=== PATIENT | female | born 1945 | race Caucasian/White ===

== ENCOUNTER → 2023-10-11 15:10 | Outpatient (REF) | payer OTHER, SELFPAY ==
[2023-10-11 16:46] LABS: HDL Cholesterol 60 mg/dl; LDL Cholesterol, Calculated 60 mg/dl; Total Cholesterol 135 mg/dl (50-199); Triglyceride 76 mg/dl (10-149); Very Low Density Lipoprotein 15 mg/dl (0-30)
== END ==
LOC: RAD 15:10
PROVIDERS: ATTENDING PHYSICIAN Anesthesiology; FAMILY PHYSICIAN Internal Medicine
DX: E78.5 Hyperlipidemia, unspecified (principal); Z79.899 Other long term (current) drug therapy; M17.11 Unilateral primary osteoarthritis, right knee; M19.031 Primary osteoarthritis, right wrist
CPT/HCPCS: 36415; 73110; 73560; 80061

== ENCOUNTER → 2023-10-18 11:39 | Outpatient (REF) | payer OTHER, SELFPAY | LOC: PAVMRI 11:39 | PROVIDERS: ATTENDING PHYSICIAN Anesthesiology; FAMILY PHYSICIAN Internal Medicine | DX: M17.11 Unilateral primary osteoarthritis, right knee (principal) | CPT/HCPCS: 73721 ==

== ENCOUNTER → 2023-12-27 16:43 | Outpatient (REF) | payer OTHER, SELFPAY ==
[2023-12-27 18:31] LABS: ALT (SGPT) 12 U/L (0-35); AST (SGOT) 19 U/L (14-36); Albumin 4.1 g/dl (3.5-5.0); Alkaline Phosphatase 74 U/L (38-126); Blood Urea Nitrogen 14 mg/dl (7-17); Calcium 9.3 mg/dl (8.4-10.2); Carbon Dioxide 29 mmol/L (22-30); Chloride 103 mmol/L (98-107); Glucose 86 mg/dl (70-99); Potassium 4.8 mmol/L (3.5-5.1); Sodium 138 mmol/L (135-145); Total Bilirubin 0.4 mg/dl (0.2-1.3); Total Protein 6.4 g/dl (6.3-8.2); eGFR > 60.00
== END ==
LOC: REG 16:43
PROVIDERS: ATTENDING PHYSICIAN Internal Medicine
DX: E67.2 Megavitamin-B6 syndrome (principal); Z79.899 Other long term (current) drug therapy; E78.5 Hyperlipidemia, unspecified
CPT/HCPCS: 36415; 80053

== ENCOUNTER → 2024-01-03 06:24 | Outpatient (REF) | payer OTHER, SELFPAY | LOC: REG 06:24 | PROVIDERS: ATTENDING PHYSICIAN Internal Medicine | DX: E67.2 Megavitamin-B6 syndrome (principal) | CPT/HCPCS: 36415; 84207 ==

== ENCOUNTER 2024-06-13 14:07 | Inpatient (IN) | payer OTHER, MEDICARE, SELFPAY ==
[2024-06-13] VITALS (28 sets, daily range): BP systolic 107–174; BP diastolic 39–89
[2024-06-13] MEDS: ZOFRAN ODT (ORALLY DISINTEGRATING) 4 MG PO (03:48)
[2024-06-13 03:50] LABS: % Basophils 0.7 % (0-2); % Eosinophils 0.3 % (0-6); % Immature Granulocytes 0.6 % (0-0.5); % Lymphocytes 5.9 % (20.5-51.1); % Monocytes 2.7 % (1.7-9.3); % Neutrophils 89.8 % (42.2-75.2); Absolute Basophils 0.2 10^3/uL (0-0.2); Absolute Eosinophils 0.1 10^3/uL (0-0.7); Absolute Immature Granulocytes 0.1 10^3/uL (0-0.05); Absolute Lymphocytes 1.2 10^3/uL (1.2-3.4); Absolute Monocytes 0.6 10^3/uL (0.1-0.6); Absolute Neutrophils 18.7 10^3/uL (1.4-6.5); Hematocrit 49.4 % (37.0-47.0); Hemoglobin 16.1 g/dL (12.0-16.0); Mean Corp Hgb Conc. 32.6 g/dL (33.0-37.0); Mean Platelet Volume 9.6 fL (7.4-10.4); Nucleated Red Blood Cells % 0 %; Platelet Count 339 10^3/uL (130-400); Red Blood Cell Count 5.37 10^6/uL (4.20-5.40); Red Cell Dist. Width 12.6 % (11.5-14.5); White Blood Cell Count 20.8 10^3/uL (4.8-10.8)
[2024-06-13 04:04] LABS: ALT (SGPT) 25 U/L (0-35); AST (SGOT) 29 U/L (14-36); Albumin 5.2 g/dl (3.5-5.0); Alkaline Phosphatase 78 U/L (38-126); Blood Urea Nitrogen 22 mg/dl (7-17); Calcium 10.1 mg/dl (8.4-10.2); Carbon Dioxide 29 mmol/L (22-30); Chloride 101 mmol/L (98-107); Glucose 188 mg/dl (70-99); Lipase 113 U/L (23-300); Potassium 3.9 mmol/L (3.5-5.1); Sodium 140 mmol/L (135-145); Total Bilirubin 0.3 mg/dl (0.2-1.3); eGFR > 60.00
[2024-06-13] MEDS: ZOFRAN 4 MG IV (05:31)
[2024-06-13] MEDS: NSS 1000 IV (05:32)
[2024-06-13] MEDS: DILAUDID 0.5 MG IV (06:54)
--- NOTE | 2024-06-13 09:21 | ED.GENMED ---
History of Present Illness
General
Chief Complaint: Abdominal Pain
Source: patient and spouse
Exam Limitations: none
Time Seen by Provider: 06/13/24 06:18
History of Present Illness
History of Present Illness:
79-year-old female presents abdominal pain, vomiting and back pain. Also reports she has some loose stool. Patient states her symptoms started last night and persisted. On my evaluation her back pain and her abdominal pain persists. Nausea is a
little bit improved but does persist. No fevers. No obvious sick contacts. Has a history of hysterectomy.
Past History
Past History
ED Past Medical History: Cancer (Uterine with hysterectomy 2003), GERD and HTN
ED Past Surgical History: Gynecological and Orthopedic
Phy Exam
Physical Exam
Physical Exam:
CONSTITUTIONAL Patient alert and oriented to person, place and time. Well-appearing. Vital signs reviewed.
HEAD atraumatic, normocephalic.
EYES eyelids normal to inspection, Extraocular muscles intact, Conjunctiva normal, Sclera normal.
NECK normal range of motion, Trachea midline, no jugular venous distention.
RESPIRATORY CHEST No respiratory distress noted, Chest expansion equal, Bilateral breath sounds clear.
CARDIOVASCULAR regular rate and rhythm, Heart sounds normal.
ABDOMEN distended, hypoactive bowel sounds. Moderate diffuse tenderness.
BACK normal inspection, no obvious deformities
UPPER EXTREMITY range of motion normal, Motor strength normal, no cyanosis, no edema.
LOWER EXTREMITY range of motion normal, Motor strength normal, no cyanosis, no edema.
NEURO Speech normal, No focal motor deficits, Petty coma scale 15, Memory normal, Cranial Nerves intact to screening exam.
SKIN skin warm, dry, and normal in color.
Course
Orders/Labs/Results
Orders:
Orders
06/13/24 03:43
Complete Blood Count/With Diff Urgent
Comprehensive Metabolic Panel Urgent
Lipase Urgent
06/13/24 03:45
Ondansetron Orally Disint [Zofran Odt (Orally Disintegrating)] 4 mg .ROUTE .STK-MED ONE
06/13/24 03:47
ECG [Electrocardiogram (*1)] Urgent
Reason for Study: Abdominal Pain
Cardiology Consult: Unknown
EKG- Treatment ONCE
Ondansetron Orally Disint [Zofran Odt (Orally Disintegrating)] 4 mg PO NOW STA
06/13/24 05:29
Ondansetron Injectable [Zofran] 4 mg .ROUTE .STK-MED ONE
06/13/24 05:30
Ondansetron Injectable [Zofran] 4 mg IV NOW STA
06/13/24 05:32
0.9% Sodium Chloride 1000 ml [Nss] 1,000 ml IV BOLUS
06/13/24 06:30
CT Abd/pelvis W Iv Cont Urgent
Comment:
Reason For Exam: mid abd pain, back pain, vomiting
HYDROmorphone [Dilaudid] 0.5 mg IV NOW STA
Ondansetron Injectable [Zofran] 4 mg IV NOW STA
06/13/24 09:39
Lactic Acid Urgent
06/13/24 09:52
Pantoprazole [Protonix IV] 40 mg .ROUTE .STK-MED ONE
06/13/24 09:59
Pantoprazole [Protonix IV] 40 mg IV NOW STA
06/13/24 10:14
NG Tube [GI tube insertion- Treatment] ONCE
06/13/24 10:46
Fentanyl Citrate/Pf [Sublimaze] 25 mcg IV PACU-Q5MPRN PRN
Fentanyl Citrate/Pf [Sublimaze] 50 mcg IV PACU-Q5MPRN PRN
Ondansetron Injectable [Zofran] 4 mg IV PACU-ONCEPRN PRN
Prochlorperazine [Compazine] 5 mg IV PACU-ONCEPRN PRN
06/13/24 10:47
Notify MD As Directed
Notify physician if: for SDS patients with known or suspected sleep obstructive sleep apnea, monitor in the
PACU.
Notify MD for any apneic/desaturation episodes
O2 Therapy [RESP] Urgent
Titrate/Wean O2 to maintain O2 sat greater than (%): 92
Special Instructions: -Provide supplemental oxygen to achieve O2 sat of 92% or greater.
-After 15 min, may wean O2 and discontinue if patient is able to maintain O2 sat of 92%
or greater during recovery period.
If patient is a discharge home, without oxygen therapy, notify anestheiologist if
unable to maintain O2 SAT of 92% or greater on room air for MD clearance.
06/13/24 10:54
Admit/Transfer Patient As Directed
Co-Sign Provider:
Level of Care: Inpatient admission
Assign to:: Medical/Surgical
Physician / Group: Vahid
Diagnosis: SBO
Reason for Hospitalization: SBO
Expected length of stay greater than two midnights?: Yes
ELOS- Estimated Length of Stay in days: 6
I certify the patient meets the requirements for IP care: Yes
PRN Pain Medication Management As Directed
May give lesser potent ordered pain med per pt: Yes
preference::
Protocol:: Medication orders for pain may be administered in a
manner that supports deferring to patient preference
when the pt is:
- Requesting an ordered lesser potent pain medication.
Least to most potent pain medications are defined
as: acetaminophen < NSAID < tramadol < opioids
(morphine, oxycodone, hydromorphone).
- Requesting a lesser dose of the same medication IF
ORDERED.
- Requesting a less intrusive route of administration
if both routes are prescribed by the provider (PO <
IV).
06/13/24 10:55
Lidocaine HCl/Pf [Xylocaine-Mpf 1% Vial] 50 mg .ROUTE .STK-MED ONE
Propofol [Diprivan] 20 ml .ROUTE .STK-MED
Rocuronium [place] [Rocuronium] 50 mg .ROUTE .STK-MED ONE
06/13/24 10:56
Code Status As Directed
Resuscitation Status: Full Code
06/13/24 10:59
CeFAZolin 2 GRAM [Ancef] 2 grams in 10 ml IV PRE PROCEDURE
NG Tube [Gastrointestinal Tubes] As Directed
To suction?: Yes
Type of suction: Low intermittent
06/13/24 11:00
Normosol (Mult Electrolytes) [Normosol-R/Plasmalyte-A] 1,000 ml IV PER PROTOCOL
06/13/24 11:12
Bupivacaine 0.5%Pf/Epinephrin [Sensorcain-Mpf Epi 0.5%-0.0005] 30 ml .ROUTE .STK-MED ONE
06/13/24 11:21
Propofol [Diprivan] 20 ml .ROUTE .STK-MED
Propofol [Diprivan] 20 ml .ROUTE .STK-MED
06/13/24 11:33
Rocuronium [place] [Rocuronium] 50 mg .ROUTE .STK-MED ONE
06/13/24 11:44
Dexamethasone Sod Phosphate [Decadron] 20 mg .ROUTE .STK-MED ONE
Ondansetron Injectable [Zofran] 4 mg .ROUTE .STK-MED ONE
06/13/24 11:45
Famotidine [Pepcid] 20 mg .ROUTE .STK-MED ONE
06/13/24 12:00
CeFAZolin 2 GRAM [Ancef] 2 grams in 10 ml IV Q8H
06/13/24 12:08
Phenylephrine HCl/0.9% NaCl [Yosef-Synephrine] 1,000 mcg .ROUTE .STK-MED ONE
06/13/24 12:20
Sugammadex Sodium [Bridion] 400 mg .ROUTE .STK-MED ONE
06/13/24 12:27
OR Cytology Routine
Date Specimen was Collected: 06/13/24
Time Specimen was Collected: 12:28
Source: Peritoneal Fluid
Clinical Impression: HX OF ENDOMETRIAL CA
History of Malignancy: ENDOMETRIAL CA
Submitting Physician: ESTER
06/13/24 12:35
Fluid Culture with Gram Stain Routine
LYNN Source: Peritoneal Fluid
Specimen Description:
Date Specimen was Collected: 06/13/24
Time Specimen was Collected: 12:27
06/13/24 13:10
Acetaminophen 1000MG/100Ml [Ofirmev] 1,000 mg in 100 ml .ROUTE .STK-MED
06/13/24 13:13
Rocuronium [place] [Rocuronium] 50 mg .ROUTE .STK-MED ONE
06/13/24 14:03
Bisacodyl [Dulcolax] 10 mg RECTAL [id number] PRN
Dextrose 5%/Lactringers 1000ML [D5lr] 1,000 ml IV 125 mls/hr
Docusate W/Senna [Senokot-S] 1 tablet PO BIDPRN PRN
Pantoprazole [Protonix IV] 40 mg IV DAILY
Polyethylene Glycol Powder [Miralax] 17 grams PO DAILYPRN PRN
06/13/24 14:03
Activity As Directed
Activity Level: Out of Bed-Early Mobility
Pneumatic Compression Sleeves As Directed
Type: Knee high
Vital Signs As Directed
Frequency: Per unit guidelines
DX Deep Vein Thrombosis Video Routine
06/13/24 14:39
Morphine Sulfate 2 mg IV Q4HPRN PRN
06/13/24 Dinner
NPO
Allow oral meds: No
Allow clear liquids: No
06/13/24 18:00
Enoxaparin Sodium [Lovenox] 40 mg SC QPM
06/13/24 20:00
Ondansetron Injectable [Zofran] 4 mg IV Q6HPRN PRN
06/14/24 06:00
Basic Metabolic Panel IN AM
Complete Blood Count/No Diff IN AM
06/15/24 06:00
Basic Metabolic Panel IN AM
Complete Blood Count/No Diff IN AM
06/16/24 06:00
Basic Metabolic Panel IN AM
Complete Blood Count/No Diff IN AM
06/17/24 06:00
Basic Metabolic Panel IN AM
Complete Blood Count/No Diff IN AM
06/18/24 06:00
Basic Metabolic Panel IN AM
Complete Blood Count/No Diff IN AM
06/19/24 06:00
Basic Metabolic Panel IN AM
Complete Blood Count/No Diff IN AM
06/20/24 06:00
Basic Metabolic Panel IN AM
Complete Blood Count/No Diff IN AM
Abnormal Lab Results
06/13/24
03:43
WBC 20.8 H 10^3/uL
(4.8-10.8)
Hgb 16.1 H g/dL
(12.0-16.0)
Hct 49.4 H %
(37.0-47.0)
MCHC 32.6 L g/dL
(33.0-37.0)
Abs Immat Gran (auto) 0.1 H 10^3/uL
(0-0.05)
Absolute Neuts (auto) 18.7 H 10^3/uL
(1.4-6.5)
Immature Gran % 0.6 H %
(0-0.5)
Neutrophils % 89.8 H %
(42.2-75.2)
Lymphocytes % 5.9 L %
(20.5-51.1)
BUN 22 H mg/dl
(7-17)
Glucose 188 H mg/dl
(70-99)
Albumin 5.2 H g/dl
(3.5-5.0)
06/13/24 03:43
06/13/24 03:43
Vital Signs
Initial and Last Documented VS:
Initial Vital Signs
Temp Pulse Resp BP Pulse Ox
97.6 F 73 16 144/82 99
06/13/24 03:23 06/13/24 03:23 06/13/24 03:23 06/13/24 03:23 06/13/24 03:23
Last Documented Vital Signs
Temp Pulse Resp BP Pulse Ox
98.9 F 79 15 119/62 96
06/13/24 14:03 06/13/24 14:30 06/13/24 14:30 06/13/24 14:30 06/13/24 14:30
MDM/Problems Addressed
MDM/Problems Addressed:
Internal hernia, small bowel obstruction
*Radiology
Radiology exam reviewed: preliminary read by ED provider (no free air. SBO)
*Pulse Oximetry
Patient hypoxic: no
*Critical Care Note
Total Time (30-74mins, 75-104mins- exclusive of procedures): Not Applicable
Data Reviewed
Source: patient and spouse
Prescriptions/Medications Considered But Not Given:
Considered antibiotics but hold off until surgical evaluation
Patient Management
Discussion with other providers: Hospitalist and Tightener (Case discussed with general surgery)
Escalation/DeEscalation of care consider admission/obs:
Case discussed with general surgery. Admit. OR. Patient does feel little better on reevaluation.
ED Attending Note
-
Portions of this chart may have been created with voice recognition software.� Occasional wrong word or��sound alike� substitutions may have occurred due to the inherent limitations of voice recognition software.
Discharge Plan
Departure
Patient Disposition: Admit
Date of Disposition: 06/13/24
Time of Disposition: 09:22
Admit to: Med/Surg
Presentation/result/management discussed w/ accepting MD/DO: Hospitalist
Discharge Problem:
SBO (small bowel obstruction), Internal hernia
Interventions
Interventions:
*General Assessment Last Done: 06/13/24 03:23
*Neglect/Abuse Screening Last Done: 06/13/24 03:23
ED- Fall Risk Assessment Last Done: 06/13/24 04:58
*ED COVID-19 Vaccine History Last Done: 06/13/24 03:23
*Nursing Disposition Last Done: 06/13/24 11:00
RW-Hadxub-Ivmchohsuu Assessment Last Done: 06/13/24 07:52
Discharge Date and Time
Discharge Date/Time: 06/13/24 11:00
[2024-06-13 09:59] LABS: Lactic Acid 1.6 mmol/L (0.7-2.0)
[2024-06-13] MEDS: PROTONIX IV 40 MG IV ×2 (10:00→16:46)
--- NOTE | 2024-06-13 10:40 | HPS.HSE ---
Family Physician
-
Family Physician: Feli Gamboa
Chief Complaint
-
Abdominal pain and vomiting
History of Present Illness
79 y/o F with PMHx:
Osteoarthritis
Fibromyalgia
Hyperlipidemia
Obesity due to excess calories
Obstructive sleep apnea, declined CPAP in the past
GERD with h/o esophagitis
Nonalcoholic fatty liver disease
Depression
Asthma
Allergic rhinitis
Vitamin D deficiency
Rosacea
h/o endometrial carcinoma s/p KEYONA-BSO 2003
Question of Sjogren's
CAD (cath 04/18/23 without intervention)
who p/w CC abdominal pain and vomiting. Patient reports she has short-term memory loss which does affect the history. She states last night she had sudden onset vomiting and diffuse abdominal pain. She cannot characterize abdominal pain. She is
not remember any hematemesis or coffee-ground emesis. She was having bowel movements yesterday evening. She denies any other acute symptoms. In the ER patient had CT A/P showing New findings suggesting developing small bowel obstruction possibly
due to an internal hernia. Dr. De Oliveira plans to take the patient to the OR.
Medical History
Past Medical History
Past Medical History: Reports Other (Osteoarthritis Fibromyalgia Hyperlipidemia Obesity due to excess calories Obstructive sleep apnea, declined CPAP in the past GERD with h/o esophagitis Nonalcoholic fatty liver disease Depression Asthma Allergic
rhinitis Vitamin D deficiency Rosacea h/o endometrial carcinoma s/p KEYONA-BSO 2003 Question)
Past Surgical History: Reports Other
Additional Past Surgical History:
as per HPI, otherwise N/A
Social History
Tobacco: Non-smoker
Alcohol: None
Drug: None
Family History
Family History: Not pertinent
Allergies / Home Medications
Allergies reflects when Allergies were last updated in [facility].
Home Medications with original date entered in [facility]
Allergy/Medication List:
Allergies
Allergy/AdvReac Type Severity Reaction Status Date / Time
hydromorphone Allergy Nausea / Verified 04/18/23 09:56
Vomiting
morphine Allergy Nausea / Verified 04/18/23 09:56
Vomiting,
headaches
oxycodone Allergy Nausea / Verified 04/18/23 09:56
Vomiting
environmental Allergy nasal Uncoded 04/18/23 09:56
congestion
Home Medications
Beta Carotene 25,000 units PO DAILY Supplement 06/25/14
albuterol sulfate 90 mcg/actuation aerosol inhaler 2 puff inhalation R Q6HPRN PRN asthma 06/25/14
ascorbic acid (vitamin C) 1,000 mg tablet (Vitamin C) 1,000 mg PO BID Supplement 06/25/14
cholecalciferol (vitamin D3) 250 mcg (10,000 unit) capsule 10,000 unit PO DAILY Supplement 06/25/14
melatonin 10 mg tablet 10 mg PO HS Sleep 06/25/14
vitamin B complex 1 ea PO DAILY Supplement 06/25/14
omeprazole 20 mg capsule,delayed release 20 mg PO DAILY Gastrointestinal issue 12/27/20
zinc sulfate 50 mg zinc (220 mg) capsule 50 mg PO DAILY Supplement ##0 12/27/20
citalopram 20 mg tablet 20 mg PO DAILY Mental Health/Anxiety 04/20/21
Pea Supplement 1 cap PO DAILY 04/13/23
aspirin 81 mg chewable tablet 81 mg PO DAILY 04/18/23
metoprolol succinate 25 mg tablet,extended release 24 hr (Toprol XL) 12.5 mg (1/2 x 25 mg) PO DAILY #30 tabs 04/18/23
nitroglycerin 0.4 mg sublingual tablet 0.4 mg sublingual [id number] PRN chest pain #25 tabs 04/18/23
rosuvastatin 10 mg tablet 10 mg PO QPM #30 tabs 04/18/23
turmeric 100 mg-radha 150 mg-olive 50 mg-oreg 150 mg-capryl capsule 1 cap PO DAILY 04/18/23
vitamin K2 40 mcg tablet 40 mcg PO DAILY 04/18/23
Review of Systems
-
History Source: Patient
A 12 point ROS was completed and negative except as noted: Yes
Physical Exam
Vital Signs
Vital Signs
Temp Pulse Resp BP Pulse Ox
97.6 F 79 15 147/68 90
06/13/24 03:23 06/13/24 08:13 06/13/24 08:13 06/13/24 09:00 06/13/24 09:00
Physical Exam
General: Other (.)
Laboratory Results
-
06/13/24 03:43
06/13/24 03:43
Laboratory Results
Lactic Acid 1.6 mmol/L (0.7-2.0) 06/13/24 09:39
Total Bilirubin 0.3 mg/dl (0.2-1.3) 06/13/24 03:43
AST 29 U/L (14-36) 06/13/24 03:43
ALT 25 U/L (0-35) 06/13/24 03:43
Alkaline Phosphatase 78 U/L (38-126) 06/13/24 03:43
Lipase 113 U/L (23-300) 06/13/24 03:43
Impression/Plan
-
Gen: NAD, AAOx3.
Eyes: EOMI, PERRLA, no scleral icterus.
Neck: supple.
CV: RRR, +S1/S2, no m/r/g.
Resp: CTAB, no rales, wheezes, or rhonchi.
Abd: +BS, soft, NT, mild-mod distention
Skin: No rashes.
Neuro: CN 2-12 intact, non-focal.
Psych: Normal mood and affect.
CT A/P: New findings suggesting developing small bowel obstruction possibly due to an internal hernia. Associated moderate ascites. New.
Acute SBO:
-NGT placed in ER
-surgery following, for OR today
-IVFs/NPO/pain control
Other problems (all home meds on hold for now while NPO):
Osteoarthritis
Fibromyalgia
Hyperlipidemia
Obesity due to excess calories
Obstructive sleep apnea, declined CPAP in the past
GERD with h/o esophagitis: IV PPI
Nonalcoholic fatty liver disease
Depression
Asthma
Allergic rhinitis
Vitamin D deficiency
Rosacea
h/o endometrial carcinoma s/p KEYONA-BSO 2003
Question of Sjogren's
CAD (cath 04/18/23 without intervention)
FULL/Lovenox
--- NOTE | 2024-06-13 11:13 | CON.GS ---
Consultation
-
Date/Time Consultation Requested: 06/13/2024 10 AM
Date/Time Consultation Performed: 06/13/2024 10 AM
Requesting Provider: ED
Performing Provider: Dr. De Oliveira
Reason for Consultation: Internal hernia
Medical History
-
Chief Complaint: Abdominal pain
History of Present Illness:
This is a 79-year-old female with multiple medical comorbidities, including history of endometrial cancer status post total abdominal hysterectomy BSO in 2003 who presents with abdominal pain nausea vomiting found to have internal hernia on CT
imaging as well as a fair amount of free fluid. She states though her pain has improved but she still has some nausea. She did vomit nonbloody nonbilious emesis earlier today she states that it was just food.
Past Medical History
Past Medical History: Reviewed & Noncontributory
Past Surgical History: Gynecological
Social History
Tobacco: Non-Smoker
Alcohol: None
Drug: None
Personal:
Living: With Family
Family History
Family History: Reviewed & Not Pertinent
Allergies / Home Medications
Allergy/AdvReac Type Severity Reaction Status Date / Time
hydromorphone Allergy Nausea / Verified 04/18/23 09:56
Vomiting
morphine Allergy Nausea / Verified 04/18/23 09:56
Vomiting,
headaches
oxycodone Allergy Nausea / Verified 04/18/23 09:56
Vomiting
environmental Allergy nasal Uncoded 04/18/23 09:56
congestion
�Medication �Instructions �Recorded �Confirmed �Type
Beta Carotene 25,000 units PO DAILY Supplement 06/25/14 06/13/24 History
albuterol sulfate 90 mcg/actuation 2 puff inhalation R Q6HPRN PRN 06/25/14 06/13/24 History
aerosol inhaler asthma
ascorbic acid (vitamin C) 1,000 mg 1,000 mg PO BID Supplement 06/25/14 06/13/24 History
tablet (Vitamin C)
cholecalciferol (vitamin D3) 250 10,000 unit PO DAILY Supplement 06/25/14 06/13/24 History
mcg (10,000 unit) capsule
melatonin 10 mg tablet 10 mg PO HS Sleep 06/25/14 06/13/24 History
vitamin B complex 1 ea PO DAILY Supplement 06/25/14 06/13/24 History
omeprazole 20 mg capsule,delayed 20 mg PO DAILY Gastrointestinal 12/27/20 06/13/24 History
release issue
zinc sulfate 50 mg zinc (220 mg) 50 mg PO DAILY Supplement ##0 12/27/20 06/13/24 History
capsule
citalopram 20 mg tablet 20 mg PO DAILY Mental 04/20/21 06/13/24 History
Health/Anxiety
Pea Supplement 1 cap PO DAILY 04/13/23 06/13/24 History
aspirin 81 mg chewable tablet 81 mg PO DAILY 04/18/23 06/13/24 History
metoprolol succinate 25 mg 12.5 mg (1/2 x 25 mg) PO DAILY #30 04/18/23 06/13/24 Rx
tablet,extended release 24 hr tabs
(Toprol XL)
nitroglycerin 0.4 mg sublingual 0.4 mg sublingual [id number] PRN 04/18/23 06/13/24 Rx
tablet chest pain #25 tabs
rosuvastatin 10 mg tablet 10 mg PO QPM #30 tabs 04/18/23 06/13/24 Rx
turmeric 100 mg-radha 150 1 cap PO DAILY 04/18/23 06/13/24 History
mg-olive 50 mg-oreg 150 mg-capryl
capsule
vitamin K2 40 mcg tablet 40 mcg PO DAILY 04/18/23 06/13/24 History
Review of Systems
-
All other systems: Negative unless noted
A 10 point review of systems was completed, and was negative except as per HPI.
Physical Exam
Vital Signs
Temp Pulse Resp BP Pulse Ox
97.6 F 92 18 128/88 93
06/13/24 03:23 06/13/24 10:30 06/13/24 10:30 06/13/24 10:30 06/13/24 10:30
06/12/24 06/13/24 06/14/24
06:59 06:59 06:59
Actual Weight 94 kg
Lab Results
06/13/24 03:43
06/13/24 03:43
WBC 20.8 10^3/uL (4.8-10.8) H 06/13/24 03:43
Hgb 16.1 g/dL (12.0-16.0) H 06/13/24 03:43
Hct 49.4 % (37.0-47.0) H 06/13/24 03:43
Plt Count 339 10^3/uL (130-400) 06/13/24 03:43
Abs Immat Gran (auto) 0.1 10^3/uL (0-0.05) H 06/13/24 03:43
Neutrophils % 89.8 % (42.2-75.2) H 06/13/24 03:43
Physical Exam
General: Well Developed
HEENT: Normocephalic
Respiratory: Non Labored Respirations
GI: Soft, Tender ( Mild), Distended and Obese
Data Reviewed
-
CT Scan: Image Personally Visualized and interpreted, Report Reviewed by me, Discussed with Physician, Discussed with Patient and Discussed with Family
Labs: Labs Reviewed by me, Discussed with Physician and Discussed with Patient
Total Time Spent with Patient (in minutes): 40
Assessment / Plan
-
This is a 79-year-old female with a history of endometrial cancer status post total abdominal hysterectomy/BSO in 2003 who presents with abdominal pain nausea vomiting found to have small bowel obstruction likely secondary to a internal hernia with
notable bowel wall thickening, inflammation and free fluid. In addition her leukocytosis is 20K. Though her lactate is normal and her abdominal exam is fairly reassuring I am concerned for bowel threat given her imaging findings and discussed that
taking this patient to the OR for diagnostic laparoscopy.
Will plan for DL in the OR today.
N.p.o., IV fluids, IV antibiotics ordered on-call.
Please place an NG tube preoperatively to decrease the risk of aspiration on induction.
Risks/Benefits/Alternatives, expected postoperative course and possible complications (bleeding, infection, injury to surrounding structures, acute/chronic pain) discussed at length. Patient wishes to proceed with surgery. All questions answered.
Consent obtained.
I spent 60 minutes in total for the care of this patient today including direct patient care and counseling, reviewing labs, imaging, coordination of care, as well as documentation.
--- NOTE | 2024-06-13 11:17 | W.SUR.PREOP ---
Pre-Operative Surgical Note
-
I have examined this patient prior to the performance of the scheduled procedure.
The patient's condition is unchanged from the time of the current History and
Physical and the patient is able to undergo the scheduled procedure.
--- NOTE | 2024-06-13 13:50 | W.IMMPOSTOP ---
Surgical Immed Post Op Note
-
Primary Surgeon: Trenton De Oliveira MD
Assisting Surgeon: None
Senior Ux Developer: BEENA Alford
Pre-op Diagnosis: Small bowel obstruction, volvulus
Post-op Diagnosis: Closed-loop small bowel obstruction, volvulus, murky ascites ascites
Procedure Performed:
1. Diagnostic laparoscopy converted to exploratory laparotomy
2. Lysis of adhesions
3. Paracentesis (400 cc)
Anesthesia Type: General
Specimen / Cultures:
1. Ascites fluid for culture and cytology.
Estimated Blood Loss: 29 cc
Complications: None
Operative Findings: Began with a 4 port diagnostic laparoscopy, lower midline incisions taken down fairly easily. Ligament of Treves identified and run in a retrograde manner where we identified multiple loops of small bowel that were adherent to
each and twisted around its axis causing a volvulus/closed-loop bowel obstruction. Converted to a mini exploratory laparotomy to perform a lysis of adhesions. The bowel was returned to the abdomen in its proper orientation. A few serosal and
mesenteric tears noted, all oversewn. All were inherent to the nature of the dissection and unavoidable and of no consequence.
POST OP PLAN:
Imaging: None
Labs: Routine AM
Diet: N.p.o., continue NG tube to low intermittent wall suction
Analgesia: Tylenol scheduled, Dilaudid as needed
Neuro/vascular checks: q4h
AC/AP: Hold Therapeutic AC, Ok for DVT PPx
Activity: Ad Izabella
Wound/Incisions/Drains: Routine
Abx: None
Dispo: RNF, await return of bowel function.
[2024-06-13] MEDS: TORADOL 15 MG IV (16:18)
[2024-06-13] MEDS: D5LR 1000 IV (16:44)
[2024-06-13] MEDS: NSS (PRESERVATIVE FREE) 10 ML IV (16:47)
[2024-06-13] MEDS: LOVENOX 40 MG SC (17:23)
[2024-06-14] MEDS: D5LR 1000 IV ×3 (02:13→21:46)
[2024-06-14 03:14] VITALS: BP 123/74
[2024-06-14 06:00] VITALS: BMI 36.8
[2024-06-14 06:33] LABS: Blood Urea Nitrogen 20 mg/dl (7-17); Calcium 8.7 mg/dl (8.4-10.2); Carbon Dioxide 32 mmol/L (22-30); Chloride 103 mmol/L (98-107); Estimated Creatinine Clearance 76 ml/min; Glucose 128 mg/dl (70-99); Sodium 141 mmol/L (135-145); eGFR > 60.00
[2024-06-14 06:42] LABS: Hematocrit 36.8 % (37.0-47.0); Mean Corp Hgb Conc. 32.6 g/dL (33.0-37.0); Mean Corpuscular Hgb 30.5 pg (27.0-31.0); Mean Corpuscular Volume 93.6 fL (81.0-99.0); Mean Platelet Volume 9.9 fL (7.4-10.4); Platelet Count 267 10^3/uL (130-400); Red Blood Cell Count 3.93 10^6/uL (4.20-5.40); Red Cell Dist. Width 12.9 % (11.5-14.5)
[2024-06-14 07:12] VITALS: BP 127/57
--- NOTE | 2024-06-14 08:22 | W.PN.HOSP.TC ---
Today's Communication/Plan
-
see plan
Assessment / Plan
Assessment / Plan
Gen: NAD, Awake and alert
Eyes: EOMI, PERRLA, no scleral icterus.
Neck: supple.
CV: remains RRR, +S1/S2, no m/r/g.
Resp: CTAB, no rales, wheezes, or rhonchi.
Abd: absent BS, soft, NT to light palpation, mild distention
Skin: No rashes.
Neuro: CN 2-12 intact, non-focal.
Psych: Normal mood and affect.
CT A/P: New findings suggesting developing small bowel obstruction possibly due to an internal hernia. Associated moderate ascites. New.
Acute SBO:
-NGT placed in ER
-s/p Diagnostic laparoscopy converted to exploratory laparotomy, Lysis of adhesions, Paracentesis (400 cc) on 06/13/24
-IVFs/NPO/pain control
Other problems (all home meds on hold for now while NPO):
Osteoarthritis
Fibromyalgia
Hyperlipidemia
Obesity due to excess calories
Obstructive sleep apnea, declined CPAP in the past
GERD with h/o esophagitis: IV PPI
Nonalcoholic fatty liver disease
Depression
Asthma
Allergic rhinitis
Vitamin D deficiency
Rosacea
h/o endometrial carcinoma s/p KEYONA-BSO 2003
Question of Sjogren's
CAD (cath 04/18/23 without intervention)
FULL/Lovenox
Anticipated Discharge: > 48 hours
Subjective/Interval History
-
Date of Service: June 14, 2024
Reports abdominal discomfort. No flatus yet.
Objective Data
-
Labs:
Laboratory Results
06/14/24
05:42
WBC 13.0 H
Hgb 12.0 D
Hct 36.8 L
Plt Count 267 D
Sodium 141
Potassium 4.0
Chloride 103
Carbon Dioxide 32 H
BUN 20 H
Creatinine 0.7
Glucose 128 H
Calcium 8.7
Vital Signs:
Vital Signs
Temp Pulse Resp BP Pulse Ox
98.4 F 86 18 127/57 95
06/14/24 07:12 06/14/24 07:12 06/14/24 07:12 06/14/24 07:12 06/14/24 07:12
I&O
06/13/24 06/14/24 06/15/24
06:59 06:59 06:59
Intake Total 1950 / 1949
Output Total 1060 / 1060
Balance 890 / 890
[2024-06-14] MEDS: NSS (PRESERVATIVE FREE) 10 ML IV (08:58)
[2024-06-14] MEDS: PROTONIX IV 40 MG IV (08:59)
[2024-06-14] MEDS: TORADOL 15 MG IV ×2 (08:59→15:31)
--- NOTE | 2024-06-14 10:05 | W.PN.GS2 ---
Today's Communication / Plan
-
Out of bed and ambulate
Assessment / Plan
-
This is a 79-year-old female postoperative day 1 from a diagnostic lap converted to open lysis of adhesions for a closed-loop obstruction/small bowel volvulus and drainage of significant amount of murky appearing ascites. Doing well, expected
postoperative course.
N.p.o., IV fluids, continue NG tube to low intermittent wall suction. Okay to clamp for p.o. meds and for ambulation.
Out of bed and ambulate as much as possible today.
Follow-up cultures. Will do a 4-day course of Ancef.
General surgery will continue to follow
Time Spent
Total Time Spent with Patient (in minutes): 20
Subjective Data
-
Date of Service: June 14, 2024
Interval Events:
No acute events overnight. Slept well. Pain Controlled. Denies Nausea/Vomiting, -bowel function.
Objective Data
-
Intake and Output
06/13/24 06/14/24 06/15/24
06:59 06:59 06:59
Intake Total 1949
Output Total 1060 / 1060
Balance 890 / 890
Intake:
IV fluids (Total) 1949
Normosol 200 / 200
Amount instilled into GI Tube ( 0 / 0
Total)
[place] Sump 0 / 0
Output:
Gastrointestinal tube output ( 400 / 400
Total)
[place] Sump 400 / 400
Urine, Luo 660 / 660
Vital Signs
Temp Pulse Resp BP Pulse Ox
98.4 F 86 18 127/57 95
06/14/24 07:12 06/14/24 07:12 06/14/24 07:12 06/14/24 07:12 06/14/24 07:12
Lab Results
06/14/24 05:42
06/14/24 05:42
Calcium 8.7 mg/dl (8.4-10.2) 06/14/24 05:42
Total Bilirubin 0.3 mg/dl (0.2-1.3) 06/13/24 03:43
AST 29 U/L (14-36) 06/13/24 03:43
ALT 25 U/L (0-35) 06/13/24 03:43
Alkaline Phosphatase 78 U/L (38-126) 06/13/24 03:43
Total Protein 8.0 g/dl (6.3-8.2) 06/13/24 03:43
Albumin 5.2 g/dl (3.5-5.0) H 06/13/24 03:43
Physical Exam
-
GENERAL/NEURO: Awake, Alert, no distress
CHEST: Unlabored breathing on RA
ABDOMEN: Soft, appropriately tender, distended, incision no dressing in place with some strikethrough, stable.
--- NOTE | 2024-06-14 10:09 | OR.RPT ---
Operative Report
Operative Report
Patient Name: Julissa Johnson
: 1945
Date of Operation: 06/13/2024
Preoperative Diagnosis: SBO, volvulus
Postoperative Diagnosis: Closed-loop small bowel obstruction, volvulus, ascites
Procedure(s):
1. Diagnostic laparoscopy converted to exploratory laparotomy
2. Lysis of adhesions
3. Paracentesis (400 cc)
Surgeon(s):
Dr. De Oliveira
Oliving Machine Operator(s):
BEENA Alford
Anesthesia: General
Estimated Blood Loss: 29 cc
Urine Output: None
Drains/Lines/Implants: None
Specimens:
1. Ascites fluid for culture and cytology
HPI/Surgical Indications:
This is a 79year old female who presented to our hospital with rather abrupt onset abdominal pain, found to have small bowel volvulus in the setting of a history of uterine cancer status post remote total abdominal hysterectomy as well as prior
abdominoplasty. Risks/Benefits/Alternatives were discussed at length, and the patient agreed to proceed with surgery.
Operative Findings: Began with a 4 port diagnostic laparoscopy, lower midline incisions taken down fairly easily. Ligament of Treves identified and run in a retrograde manner where we identified multiple loops of small bowel that were adherent to
each and twisted around its axis causing a volvulus/closed-loop bowel obstruction. Converted to a mini exploratory laparotomy to perform a lysis of adhesions. The bowel was returned to the abdomen in its proper orientation. A few serosal and
mesenteric tears noted, all oversewn. All were inherent to the nature of the dissection and unavoidable and of no consequence.
Procedure Description:
The patient was brought to the Operating Room and placed in the supine position with the arms tucked. IV antibiotics were infused and Venodyne stockings placed. Following uneventful induction of general endotracheal anesthesia, the abdomen was
prepped and draped in the usual sterile fashion. The abdomen was entered using a left subcostal Veress technique that required a single pass followed by a left upper quadrant 5 mm Optiview trocar. There were some omental adhesions noted to the
anterior abdominal wall primarily along the inferior midline at the site of her prior incision so 3 additional 5 mm ports were then placed in the respective quadrants and these adhesions were carefully taken down. We did encounter both dilated and
decompressed loops of bowel. The right colon was identified and traced to the ligament of Treves. The bowel was then run in a retrograde fashion however it was noted to be diving down into the pelvis and despite repositioning of the patient and
manipulation of the bowel we could not free up fairly large segment of bowel due to dense adhesions. At this point, I felt a laparoscopic lysis would take a significant amount of time so we elected to convert to a open lysis via a lower midline
incision. The abdomen was entered safely and a large Ajit wound retractor was placed. The bowel was carefully extracorporealized. There was several loops of small bowel that were adherent to each other and had twisted around its axis causing a
volvulus and closed-loop bowel obstruction. We then performed a full lysis. There were 2 small serosal tears that were imbricated with 3-0 Vicryl sutures. There is also a small injury to the mesentery that was ligated with a 3-0 silk pop. these
were inherent to the nature of the dissection and of no consequence. Eventually the bowel and mesentery was free. The bowel was run from the ligament of Treitz to the ligament of Treves to confirm no missed injury to the bowel or mesentery and
that the bowel laid in its normal anatomic position. Satisfied, the Ajit wound retractor was removed and the fascia was closed by anchoring 0 PDS suture at each apex and running it towards the middle taking 0.5 cm bites with 0.5 cm advancement.
The skin was then approximated using a skin stapler, as per the laparoscopic port sites. Counts were correct x 2. Overall, the patient tolerated the procedure well and was taken to the Recovery Room postoperatively in stable condition.
I was the attending physician and performed the procedure with assistance from the DIRECTOR CHILD above. I was present for all portions of the case
Trenton De Oliveira MD
--- NOTE | 2024-06-14 10:42 | CM ---
Reviewed the chart notes and spoke with the patient at the bedside. Patient is s/p diagnostic lap converted to open lysis of adhesions for a closed-loop obstruction/small bowel volvulus. The patient is currently NPO with NGT to lws. The patient
resides with her spouse in a two story home with two steps to enter. The patient reports having had [facility] in the past, but no DME or SNF. The patient confirmed her pharmacy of choice is [facility]. Patient's PCP is Dr. Gamboa.
CM continues to be available to patient/family and is monitoring medical plan for needs at discharge.
Plan: Discharge to home when medically stable. No needs anticipated at this time.
--- NOTE | 2024-06-14 11:06 | W.PN.UPDATE ---
Update Note
Progress Note Update
Case discussed with Dr. De Oliveira and he has accepted the pt on his service.
--- NOTE | 2024-06-14 11:26 | PTCARENOTE ---
Addendum entered by Regina Dillon RN 06/14/24 12:10:
While doing hourly rounds, patients NGT observed to be at 65 cm marking again. Low Intermittent wall suction still connected and draining greenish brown bile. Pia PAc made aware. X ray from previous episode done. Pia stated it was ok to leave at
65 cm. Will continue to observe.
Original Note:
Upon assessment this AM, NGT marking was at 65. It was reported to be at 70 since surgery. NGT advance to 70 cm and resecured to nose. Pia PAC made aware. X ray pending.
[2024-06-14 11:29] VITALS: BP 138/70
[2024-06-14] MEDS: ANCEF 10 IV ×2 (12:05→21:10)
[2024-06-14] MEDS: OFIRMEV 100 IV ×2 (12:16→21:52)
[2024-06-14 15:30] VITALS: BP 104/58
[2024-06-14] MEDS: LOVENOX 40 MG SC (18:18)
--- NOTE | 2024-06-14 19:17 | PTCARENOTE ---
Urinary catheter removed this AM at 1015 as ordered. Patient due to void at 1615. Patient did not feel the need to void but did try with no success. Bladder scan at [address] De Oliveira made aware via tiger text at 1709. Night RN made aware.
Will continue to monitor.
[2024-06-14] MEDS: D5LR IV (23:29)
[2024-06-14 23:43] VITALS: BP 125/52
[2024-06-15] MEDS: ANCEF 10 IV ×3 (03:47→21:35)
[2024-06-15] MEDS: TORADOL 15 MG IV (03:53)
[2024-06-15 07:15] VITALS: BP 90/50
[2024-06-15] MEDS: NSS 500 IV (07:45)
[2024-06-15 08:42] LABS: Blood Urea Nitrogen 20 mg/dl (7-17); Calcium 8.2 mg/dl (8.4-10.2); Carbon Dioxide 31 mmol/L (22-30); Chloride 104 mmol/L (98-107); Estimated Creatinine Clearance 89 ml/min; Glucose 106 mg/dl (70-99); Sodium 140 mmol/L (135-145); eGFR > 60.00
[2024-06-15 08:46] VITALS: BP 90/50
[2024-06-15] MEDS: PROTONIX IV 40 MG IV (08:54)
[2024-06-15] MEDS: NSS (PRESERVATIVE FREE) 10 ML IV (08:54)
[2024-06-15] MEDS: D5LR 1000 IV ×2 (08:55→19:24)
[2024-06-15 09:13] LABS: Hematocrit 30.7 % (37.0-47.0); Hemoglobin 9.9 g/dL (12.0-16.0); Mean Corp Hgb Conc. 32.2 g/dL (33.0-37.0); Mean Corpuscular Hgb 30.7 pg (27.0-31.0); Mean Platelet Volume 10.2 fL (7.4-10.4); Platelet Count 206 10^3/uL (130-400); Red Blood Cell Count 3.23 10^6/uL (4.20-5.40); Red Cell Dist. Width 13.1 % (11.5-14.5); White Blood Cell Count 8.7 10^3/uL (4.8-10.8)
[2024-06-15 09:32] VITALS: BP 121/54
--- NOTE | 2024-06-15 09:32 | PTCARENOTE ---
Patient BP this Am was 90/50 HR 83. [place] PAC made aware. 500 NSS fluid bolus ordered and given. BP now is 121/54 HR 83.
--- NOTE | 2024-06-15 09:37 | W.PN.GS2 ---
Today's Communication / Plan
-
TXA
Trend labs
Assessment / Plan
-
This is a 79-year-old female POD #2 diagnostic lap converted to open lysis of adhesions for a closed-loop obstruction/small bowel volvulus and drainage of significant amount of murky appearing ascites.
Await bowel recovery
BP low normal this am, responded well to NSS bolus
Low UO over the last 24h
Acute blood loss anemia, suspect component of hemodilution. No overt bleeding although there is bruising to the skin of the left abdomen with possible hematoma forming. NGT bilious/nonbloody.
Plan
N.p.o./ continue NG tube to low intermittent wall suction. Okay to clamp for p.o. meds and for ambulation
Continue IVF
Follow UO
TXA x1
Recheck h/h with type and screen at noon
ABD binder for light skin compression.
Follow-up cultures. Condintue 4-day course of Ancef.
Hold lovenox and NSAIDs, SCDs for VTE ppx
Subjective Data
-
Date of Service: June 15, 2024
Patient seen and examined at bedside with Dr. De Oliveira. Denies worsening pain. No n/v. Not yet passing flatus.
Objective Data
-
Intake and Output
06/14/24 06/15/24 06/16/24
06:59 06:59 06:59
Intake Total 1949 1690 / 1690 1999 / 1999
Output Total 1060 / 1060 850 / 850 300 / 300
Balance 890 / 890 840 / 840 1700 / 1700
Intake:
IV fluids (Total) 1949 1500 / 1500 500 / 500
Normosol 200 / 200
IV piggybacks 100 / 100 1500 / 1500
Amount instilled into GI Tube ( 0 / 0 90 / 90
Total)
[place] Sump 0 / 0 90 / 90
Output:
Gastrointestinal tube output ( 400 / 400 400 / 400 300 / 300
Total)
[place] Sump 400 / 400 400 / 400 300 / 300
Urine, Luo 660 / 660 200 / 200
Urine, Voided 250 / 250
Vital Signs
Temp Pulse Resp BP Pulse Ox
98.6 F 83 16 121/54 96
06/15/24 07:15 06/15/24 09:32 06/15/24 07:15 06/15/24 09:32 06/15/24 07:15
Lab Results
06/15/24 07:21
Calcium 8.2 mg/dl (8.4-10.2) L 06/15/24 07:21
Total Bilirubin 0.3 mg/dl (0.2-1.3) 06/13/24 03:43
AST 29 U/L (14-36) 06/13/24 03:43
ALT 25 U/L (0-35) 06/13/24 03:43
Alkaline Phosphatase 78 U/L (38-126) 06/13/24 03:43
Total Protein 8.0 g/dl (6.3-8.2) 06/13/24 03:43
Albumin 5.2 g/dl (3.5-5.0) H 06/13/24 03:43
Physical Exam
-
GENERAL/NEURO: Awake, Alert, no distress
CHEST: Unlabored breathing on RA
ABDOMEN: Soft, appropriately tender, distended, incision no dressing in place with some strikethrough, stable. Ecchymosis to LLQ.
NGT with light bilious outputs
[2024-06-15] MEDS: TRANEXAMIC ACID 100 IV (10:07)
[2024-06-15 11:50] VITALS: BP 113/50
[2024-06-15 11:50] LABS: Hematocrit 32.9 % (37.0-47.0); Hemoglobin 10.6 g/dL (12.0-16.0)
[2024-06-15] MEDS: OFIRMEV 100 IV (15:35)
[2024-06-15 16:18] VITALS: BP 115/62
--- NOTE | 2024-06-15 18:15 | PTCARENOTE ---
Addendum entered by Regina Dillon RN 06/15/24 19:39:
Patient agreed to bladder scan when rounding with night RN. At 1915, bladder scan was only 17 ml. Night RN aware.
Original Note:
Patient had only voided 150 ml of dark concentrated urine around 1100 this morning. Around 1730, RN asked patient if she felt like she had to pee. Patient stated she would try. Walked patient to the bathroom, after sitting for some time, patient
only voided 75 ml dark yellow urine. Patient stated that she had company, is too distracted and that she would try again later. Patient denied discomfort. RN explained to patient that she would need to be bladder scanned as she has had a lot of IV
fluids and has only urinated a small amount. Patient stated she is having company and does not want it done right now. RN again educated patient on the importance of doing the bladder scan. Patient still insisted that it be done later. Will let next
RN know.
[2024-06-15 23:32] VITALS: BP 121/59
[2024-06-16] MEDS: D5LR 1000 IV ×3 (03:40→23:05)
[2024-06-16] MEDS: ANCEF 10 IV ×3 (03:40→20:49)
--- NOTE | 2024-06-16 04:32 | PTCARENOTE ---
NGT reported between 65-67. Found to be at 55cm and reinserted to 66. Patient tolerated well. Patient continue with small voids in bathroom. Unclear if any went in toilet at patient flushed. Voids in hat measure 100ml-150ml. Bladder scan
for 2ml.
[2024-06-16] MEDS: OFIRMEV 100 IV ×3 (06:10→21:34)
[2024-06-16 07:00] VITALS: BP 127/53
[2024-06-16 07:17] LABS: Hematocrit 29.3 % (37.0-47.0); Hemoglobin 9.4 g/dL (12.0-16.0); Mean Corp Hgb Conc. 32.1 g/dL (33.0-37.0); Mean Corpuscular Hgb 30.1 pg (27.0-31.0); Mean Corpuscular Volume 93.9 fL (81.0-99.0); Mean Platelet Volume 10.3 fL (7.4-10.4); Platelet Count 196 10^3/uL (130-400); Red Blood Cell Count 3.12 10^6/uL (4.20-5.40); Red Cell Dist. Width 12.8 % (11.5-14.5); White Blood Cell Count 7.8 10^3/uL (4.8-10.8)
[2024-06-16 07:25] LABS: Blood Urea Nitrogen 15 mg/dl (7-17); Calcium 8.2 mg/dl (8.4-10.2); Carbon Dioxide 33 mmol/L (22-30); Chloride 103 mmol/L (98-107); Estimated Creatinine Clearance 89 ml/min; Glucose 97 mg/dl (70-99); Potassium 3.2 mmol/L (3.5-5.1); Sodium 139 mmol/L (135-145); eGFR > 60.00
[2024-06-16] MEDS: KCL 270 MEQ IV (08:56)
[2024-06-16] MEDS: PROTONIX IV 40 MG IV (08:57)
[2024-06-16] MEDS: NSS (PRESERVATIVE FREE) 10 ML IV (08:57)
--- NOTE | 2024-06-16 10:50 | W.PN.GS2 ---
Today's Communication / Plan
-
NGT clamp trial
Assessment / Plan
-
This is a 79-year-old female POD #3 diagnostic lap converted to open lysis of adhesions for a closed-loop obstruction/small bowel volvulus and drainage of significant amount of murky appearing ascites.
No n/v, passing flatus
AFVSS
UO has improved
Acute blood loss anemia, suspect component of hemodilution with ecchymosis at port sites, resolving superficial hematoma suspected. H/H stable s/p TXA.
Plan
Clamp trial of NGT and advance to CLD if does well
Continue IVF
Follow labs
ABD binder for light compression. Trim to size.
OOB/Ambulate. IS while awake
Follow-up cultures. Condintue 4-day course of Ancef.
Hold lovenox and NSAIDs given anemia, SCDs for VTE ppx
Subjective Data
-
Date of Service: June 16, 2024
Patient seen and evaluated at bedside with Dr. De Oliveira. She has begun to pass flatus this am. Denies n/v. No BM's as of yet. Reports she was able to ambulate in the hallway last night. ABD binder in place but too long on her torso
Objective Data
-
Intake and Output
06/15/24 06/16/24 06/17/24
06:59 06:59 06:59
Intake Total 1690 / 1690 3680 / 3680 1870 / 1870
Output Total 850 / 850 1725 / 1725 500 / 500
Balance 840 / 840 1955 / 1955 1370 / 1370
Intake:
IV fluids (Total) 1500 / 1500 1900 / 1900 1500 / 1500
IV piggybacks 100 / 100 1600 / 1600 370 / 370
Amount instilled into GI Tube ( 90 / 90 180 / 180
Total)
[place] Sump 90 / 90 180 / 180
Output:
Gastrointestinal tube output ( 400 / 400 950 / 950
Total)
[place] Sump 400 / 400 950 / 950
Urine, Luo 200 / 200
Urine, Voided 250 / 250 775 / 775 500 / 500
Vital Signs
Temp Pulse Resp BP Pulse Ox
98.5 F 84 18 127/53 96
06/16/24 07:00 06/16/24 07:00 06/16/24 07:00 06/16/24 07:00 06/16/24 07:00
Lab Results
06/16/24 06:29
06/16/24 06:29
Calcium 8.2 mg/dl (8.4-10.2) L 06/16/24 06:29
Total Bilirubin 0.3 mg/dl (0.2-1.3) 06/13/24 03:43
AST 29 U/L (14-36) 06/13/24 03:43
ALT 25 U/L (0-35) 06/13/24 03:43
Alkaline Phosphatase 78 U/L (38-126) 06/13/24 03:43
Total Protein 8.0 g/dl (6.3-8.2) 06/13/24 03:43
Albumin 5.2 g/dl (3.5-5.0) H 06/13/24 03:43
Physical Exam
-
GENERAL/NEURO: Awake, Alert, no distress
CHEST: Unlabored breathing on RA
ABDOMEN: Soft, appropriately tender, distended, incision no dressing in place with some strikethrough, stable. Ecchymosis to lap incisions and lower pelvis
NGT with light nonbilious outputs
--- NOTE | 2024-06-16 11:25 | CM ---
Reviewed the chart notes and spoke with the patient at the bedside. NGT clamped until noon today and then residual to be checked. CM continues to be available to patient/family and is monitoring medical plan for needs at discharge.
Plan: Discharge plans will depend on progress. Hoping home with no needs.
--- NOTE | 2024-06-16 12:30 | PTCARENOTE ---
NGT turned off during surgeon a.m. visit; BERKLEY Garcia confirmed that NGT clamp trial in effect, check residual at noon and if <150mls may remove NGT and place patient on clears; at 12:30 NGT residual only 20mls, BERKLEY Palacio notified; this RN pulled
NGT out without incident and order entered for clear liquid diet.
[2024-06-16 15:00] VITALS: BP 169/82
[2024-06-16 22:48] VITALS: BP 118/58
[2024-06-16] MEDS: D5LR IV (23:04)
[2024-06-17] MEDS: ANCEF 10 IV ×3 (03:32→20:15)
[2024-06-17] MEDS: OFIRMEV 100 IV (04:06)
[2024-06-17 07:01] LABS: Hematocrit 29.3 % (37.0-47.0); Hemoglobin 9.6 g/dL (12.0-16.0); Mean Corp Hgb Conc. 32.8 g/dL (33.0-37.0); Mean Corpuscular Hgb 30.3 pg (27.0-31.0); Mean Corpuscular Volume 92.4 fL (81.0-99.0); Mean Platelet Volume 9.8 fL (7.4-10.4); Platelet Count 191 10^3/uL (130-400); Red Blood Cell Count 3.17 10^6/uL (4.20-5.40); Red Cell Dist. Width 12.5 % (11.5-14.5); White Blood Cell Count 6.6 10^3/uL (4.8-10.8)
[2024-06-17 07:30] VITALS: BP 120/59
[2024-06-17] MEDS: D5LR 1000 IV (07:37)
[2024-06-17 07:38] LABS: Blood Urea Nitrogen 8 mg/dl (7-17); Calcium 8.3 mg/dl (8.4-10.2); Carbon Dioxide 29 mmol/L (22-30); Chloride 105 mmol/L (98-107); Estimated Creatinine Clearance 89 ml/min; Glucose 106 mg/dl (70-99); Potassium 3.6 mmol/L (3.5-5.1); Sodium 140 mmol/L (135-145); eGFR > 60.00
[2024-06-17] MEDS: NSS (PRESERVATIVE FREE) 10 ML IV (07:42)
[2024-06-17] MEDS: PROTONIX IV 40 MG IV (07:42)
--- NOTE | 2024-06-17 09:21 | W.PN.GS2 ---
Today's Communication / Plan
-
-- Maintain on clears
-- Pain control: Tylenol and Toradol
-- Continue and decrease IVF
-- Cultures negative. Continue 4-day course of Ancef (final day today)
-- DVT: OK to resume Lovenox given stable Hb
Assessment / Plan
-
This is a 79-year-old female POD#4 diagnostic lap converted to open lysis of adhesions for a closed-loop obstruction/small bowel volvulus and drainage of significant amount of murky appearing ascites.
AFVSS
Leukocytosis resolved, Hb stable
Likely mild postop ileus, weaning more consistent return of bowel function, maintain on clears.
Acute blood loss anemia, suspect component of hemodilution with ecchymosis at incisions, resolving superficial hematoma suspected. H/H stable s/p TXA. Hemoglobin stable for over 48 hours, plan to resume Lovenox (increased risk for DVT given obesity
and abdominal surgery). Plan to resume Toradol for improved pain control and mobility.
UO has improved. can decrease IVF
Plan
-- Maintain on clears
-- Pain control: Tylenol and Toradol
-- Continue and decrease IVF
-- ABD binder for light compression. Trim to size.
-- OOB/Ambulate. IS while awake
-- Cultures negative. Continue 4-day course of Ancef (final day today)
-- DVT: OK to resume Lovenox given stable Hb
-- GI: PPI
Subjective Data
-
Date of Service: June 17, 2024
Reports mild bloating and some burping. No nausea or vomiting. Continues to pass flatus, no BM. Ambulating. Voiding. No fevers. Denies any dizziness or lightheadedness.
Objective Data
-
Intake and Output
06/16/24 06/17/24 06/18/24
06:59 06:59 06:59
Intake Total 3680 / 3680 5757.5 / 5757.5
Output Total 1725 / 1725 1050 / 1050
Balance 1954 / 1954 4707.5 / 4707.5
Intake:
Oral fluids 900 / 900
IV fluids (Total) 1900 / 1900 4187.5 / 4187.5
IV piggybacks 1600 / 1600 670 / 670
Amount instilled into GI Tube ( 180 / 180
Total)
[place] Sump 180 / 180
Output:
Gastrointestinal tube output ( 950 / 950 50 / 50
Total)
[place] Sump 950 / 950 50 / 50
Urine, Voided 775 / 775 1000 / 1000
Other:
Number of approximated MODERATE 2
amounts of urine
Vital Signs
Temp Pulse Resp BP Pulse Ox
98.7 F 86 20 120/59 98
06/17/24 07:30 06/17/24 07:30 06/17/24 07:30 06/17/24 07:30 06/17/24 07:30
Lab Results
06/17/24 06:46
06/17/24 06:46
Calcium 8.3 mg/dl (8.4-10.2) L 06/17/24 06:46
Total Bilirubin 0.3 mg/dl (0.2-1.3) 06/13/24 03:43
AST 29 U/L (14-36) 06/13/24 03:43
ALT 25 U/L (0-35) 06/13/24 03:43
Alkaline Phosphatase 78 U/L (38-126) 06/13/24 03:43
Total Protein 8.0 g/dl (6.3-8.2) 06/13/24 03:43
Albumin 5.2 g/dl (3.5-5.0) H 06/13/24 03:43
Physical Exam
-
Gen: NAD
Abd: soft, NT, obese, ND, non-peritoneal, midline dressing taken down, old blood cleaned, no active ooze, extensive old ecchymosis of abdominal wall, no erythema, gricelda in place
--- NOTE | 2024-06-17 11:40 | CM ---
Patient seen bedside.
patient aware of CM availability should needs arise.
Plan: home, no needs anticipated.
c
[2024-06-17 15:15] VITALS: BP 128/62
[2024-06-17] MEDS: TORADOL 15 MG IV ×2 (16:48→22:50)
[2024-06-17] MEDS: LOVENOX 40 MG SC (16:49)
[2024-06-17 23:35] VITALS: BP 141/79
[2024-06-18 00:47] VITALS: BP 141/79
[2024-06-18] MEDS: ANCEF 10 IV (04:08)
[2024-06-18 07:28] LABS: Hematocrit 30.8 % (37.0-47.0); Hemoglobin 10.2 g/dL (12.0-16.0); Mean Corp Hgb Conc. 33.1 g/dL (33.0-37.0); Mean Corpuscular Hgb 29.8 pg (27.0-31.0); Mean Corpuscular Volume 90.1 fL (81.0-99.0); Mean Platelet Volume 9.8 fL (7.4-10.4); Platelet Count 232 10^3/uL (130-400); Red Blood Cell Count 3.42 10^6/uL (4.20-5.40); Red Cell Dist. Width 12.6 % (11.5-14.5); White Blood Cell Count 6.5 10^3/uL (4.8-10.8)
[2024-06-18 07:43] LABS: Blood Urea Nitrogen 8 mg/dl (7-17); Calcium 8.5 mg/dl (8.4-10.2); Carbon Dioxide 28 mmol/L (22-30); Chloride 104 mmol/L (98-107); Estimated Creatinine Clearance 89 ml/min; Glucose 99 mg/dl (70-99); Potassium 3.6 mmol/L (3.5-5.1); Sodium 139 mmol/L (135-145); eGFR > 60.00
[2024-06-18 08:00] VITALS: BP 127/64
[2024-06-18] MEDS: TORADOL 15 MG IV ×2 (08:58→19:50)
[2024-06-18] MEDS: NSS (PRESERVATIVE FREE) 10 ML IV (08:58)
[2024-06-18] MEDS: PROTONIX IV 40 MG IV (08:59)
[2024-06-18] MEDS: FLUSH (NSS) 3 FLUSH IV (08:59)
--- NOTE | 2024-06-18 09:54 | W.PN.GS2 ---
Today's Communication / Plan
-
-- LRD
-- DC IVF
-- Home meds
Assessment / Plan
-
This is a 79-year-old female POD#5 diagnostic lap converted to open lysis of adhesions for a closed-loop obstruction/small bowel volvulus and drainage of significant amount of murky appearing ascites.
AFVSS
Leukocytosis resolved, Hb stable
Likely mild postop ileus (not unexpected), improved return of bowel function, advancing to LRD
Acute blood loss anemia, suspect component of hemodilution with ecchymosis at incisions, resolving superficial hematoma suspected. H/H stable s/p TXA. Hemoglobin stable for over 48 hours, plan to resume Lovenox (increased risk for DVT given obesity
and abdominal surgery).
UO has improved. DC IVF
Plan
-- LRD
-- Pain control: Tylenol, Toradol, Tramadol
-- DC IVF
-- ABD binder for light compression. Trim to size.
-- OOB/Ambulate. IS while awake
-- Cultures negative. Continue 4-day course of Ancef, finished
-- DVT: OK to resume Lovenox given stable Hb
-- GI: PPI
-- Home meds reviewed and reordered
Subjective Data
-
Date of Service: June 18, 2024
Feels improved. Denies any nausea or vomiting. Less belching. Passing flatus and small loose nonbloody stools. Improving. Voiding.
Objective Data
-
Intake and Output
06/17/24 06/18/24 06/19/24
06:59 06:59 06:59
Intake Total 5757.5 / 5757.5 1924
Output Total 1050 / 1050
Balance 4707.5 / 4707.5 1924
Intake:
Oral fluids 900 / 900 960 / 960
IV fluids (Total) 4187.5 / 4187.5 965 / 965
IV piggybacks 670 / 670
Output:
Gastrointestinal tube output ( 50 / 50
Total)
[place] Sump 50 / 50
Urine, Voided 1000 / 1000
Other:
Number of approximated MODERATE 2 2
amounts of urine
Number of approximated LARGE 1
amounts of urine
Vital Signs
Temp Pulse Resp BP Pulse Ox
97.9 F 74 20 127/64 95
06/18/24 08:00 06/18/24 08:00 06/18/24 08:00 06/18/24 08:00 06/18/24 08:00
Lab Results
06/18/24 07:00
06/18/24 07:00
Calcium 8.5 mg/dl (8.4-10.2) 06/18/24 07:00
Total Bilirubin 0.3 mg/dl (0.2-1.3) 06/13/24 03:43
AST 29 U/L (14-36) 06/13/24 03:43
ALT 25 U/L (0-35) 06/13/24 03:43
Alkaline Phosphatase 78 U/L (38-126) 06/13/24 03:43
Total Protein 8.0 g/dl (6.3-8.2) 06/13/24 03:43
Albumin 5.2 g/dl (3.5-5.0) H 06/13/24 03:43
Physical Exam
-
Gen: NAD
Abd: soft, mild tenderness, mild distension/obese, non-peritoneal, diffuse abdominal ecchymosis, dressing c/d/i, no erythema, or drainage
[2024-06-18] MEDS: TOPROL XL 12.5 MG PO (12:29)
[2024-06-18 14:46] VITALS: BP 144/66
[2024-06-18] MEDS: CRESTOR 10 MG PO (17:33)
[2024-06-18] MEDS: LOVENOX 40 MG SC (17:33)
[2024-06-18] MEDS: MELATONIN 10 MG PO (22:10)
[2024-06-18 22:30] VITALS: BP 131/71
[2024-06-19 06:59] LABS: Hematocrit 30.4 % (37.0-47.0); Hemoglobin 9.8 g/dL (12.0-16.0); Mean Corp Hgb Conc. 32.2 g/dL (33.0-37.0); Mean Corpuscular Hgb 29.3 pg (27.0-31.0); Mean Platelet Volume 10.3 fL (7.4-10.4); Platelet Count 271 10^3/uL (130-400); Red Blood Cell Count 3.34 10^6/uL (4.20-5.40); Red Cell Dist. Width 12.4 % (11.5-14.5); White Blood Cell Count 6.9 10^3/uL (4.8-10.8)
[2024-06-19 07:22] LABS: Blood Urea Nitrogen 13 mg/dl (7-17); Calcium 8.5 mg/dl (8.4-10.2); Carbon Dioxide 28 mmol/L (22-30); Chloride 105 mmol/L (98-107); Estimated Creatinine Clearance 89 ml/min; Glucose 111 mg/dl (70-99); Potassium 3.7 mmol/L (3.5-5.1); Sodium 138 mmol/L (135-145); eGFR > 60.00
[2024-06-19 08:20] VITALS: BP 136/75
[2024-06-19] MEDS: CELEXA 20 MG PO (08:48)
[2024-06-19] MEDS: PROTONIX 40 MG PO (08:48)
[2024-06-19] MEDS: TORADOL 15 MG IV (08:48)
[2024-06-19] MEDS: TOPROL XL 12.5 MG PO (08:48)
[2024-06-19] MEDS: FLUSH (NSS) 2 FLUSH IV (08:50)
--- NOTE | 2024-06-19 10:28 | W.PN.GS2 ---
Today's Communication / Plan
-
Dispo planning
Assessment / Plan
-
This is a 79-year-old female POD#6 diagnostic lap converted to open lysis of adhesions for a closed-loop obstruction/small bowel volvulus and drainage of significant amount of murky appearing ascites.
AFVSS
Leukocytosis resolved, Hb stable
Likely mild expected ileus, improved return of bowel function, advancing to LRD
Acute blood loss anemia, suspect component of hemodilution with ecchymosis at incisions, resolving superficial hematoma suspected. H/H stable s/p TXA. Hemoglobin stable for over 48 hours, plan to resume Lovenox (increased risk for DVT given obesity
and abdominal surgery).
UO has improved. DC IVF
Plan
DC home today
Will follow-up with in 1 week for staple removal
Time Spent
Total Time Spent with Patient (in minutes): 20
Subjective Data
-
Date of Service: June 19, 2024
Interval Events:
No acute events overnight. Slept well. Pain Controlled. Denies Nausea/Vomiting, +bowel function. Tolerating diet.
Objective Data
-
Intake and Output
06/18/24 06/19/24 06/20/24
06:59 06:59 06:59
Intake Total 1924 680 / 680 360 / 360
Output Total 800 / 800
Balance 1924 -120 / -120 360 / 360
Intake:
Oral fluids 960 / 960 680 / 680 360 / 360
IV fluids (Total) 965 / 965
Output:
Urine, Voided 800 / 800
Other:
Number of approximated MODERATE 2 2 1
amounts of urine
Number of approximated LARGE 1
amounts of urine
Vital Signs
Temp Pulse Resp BP Pulse Ox
98.2 F 77 16 136/75 96
06/19/24 08:20 06/19/24 08:20 06/19/24 08:20 06/19/24 08:20 06/19/24 08:20
Lab Results
06/19/24 06:21
06/19/24 06:20
Calcium 8.5 mg/dl (8.4-10.2) 06/19/24 06:20
Total Bilirubin 0.3 mg/dl (0.2-1.3) 06/13/24 03:43
AST 29 U/L (14-36) 06/13/24 03:43
ALT 25 U/L (0-35) 06/13/24 03:43
Alkaline Phosphatase 78 U/L (38-126) 06/13/24 03:43
Total Protein 8.0 g/dl (6.3-8.2) 06/13/24 03:43
Albumin 5.2 g/dl (3.5-5.0) H 06/13/24 03:43
Physical Exam
-
GENERAL/NEURO: Awake, Alert, no distress
CHEST: Unlabored breathing on RA
ABDOMEN: Soft, Non-Tender, Non-Distended, stable bruising. Incisions clean dry and intact with gricelda in place.
--- NOTE | 2024-06-19 11:02 | CM ---
Reviewed the chart notes and spoke with the patient at the bedside. IMM reviewed. The patient anticipates being discharged to home today with no additional needs identified. Patient's spouse will provide transportation home. CM continues to be
available to patient/family and is monitoring medical plan for needs at discharge.
Plan: Discharge to home today.
[2024-06-19 11:35] VITALS: BP 143/66
--- NOTE | 2024-06-20 10:04 | W.DCSUMMARY ---
Discharge Summary
Discharge Data
Date of Admission: 06/13/24
Date of Discharge: 06/19/24
-
Pending Results: No
Hospital Course
Ms Johnson is a 79 yo female who presented with a closed loop small bowel obstruction due to small bowel volvulus who was taken to the operating room for diagnostic laparoscopy converted to open exploratory laparotomy for lysis of adhesions. Post
operatively, ileus was noted and she was followed with NGT for decompression until bowel recovery was demonstrated at which point the NGT was removed and diet was slowly advanced. She did have noted anemia post operatively with component of
hemodilution as well as acute blood loss with superficial hematoma suspected to the lower abdomen. She was followed by the hospitalist team initially for medical management. Once tolerating diet with good pain control on oral agents, she was
discharged to home for outpatient follow up in approximately one week for removal of gricelda.
Discharge Plan
-
Patient Disposition: Home (Routine Discharge)
Discharge Diagnosis/Procedures: Small bowel volvulus. Diagnostic lap converted to open lysis of adhesions
Condition: Good
Diet: No restrictions
Activity: No strenuous activity
Driving Restrictions: As prior to admission
Bathing Restrictions: OK to Shower
Activity Restrictions/Additional Instructions:
Instructions following abdominal surgery
Please call [phone] if you have any questions or concerns after your surgery.
Wound Care:
Your incisions are covered with skin glue which will come off on its own in 5-10 days.
It is ok to shower the day after your surgery. Do not scrub the incisions, let soap and water wash over them and pat dry.
� Bruising around your incisions is normal.
� Using ice packs will help minimize this swelling.
� No swimming or soaking incisions for 1 week.
� Your stitches will dissolve and do not need to be removed.
Urinary retention:
If you are unable to urinate 6-8 hours after your surgery, please call [phone] to discuss further management.
Activity:
No heavy lifting more than 15 pounds for the next 3 weeks, then you may gradually lift heavier objects as tolerated by discomfort. Otherwise activity as tolerated by your comfort level.
Pain Management:
Use Tylenol, ibuprofen and ice packs to treat your pain.
� You may take 650 milligrams of Tylenol (Max 3 grams per day) every 6 hours, and 600 mg of ibuprofen also every 6 hours. (you can alternate them every 3 hours)
� You may use an ice pack to your incision as needed.
� If you still have pain not controlled by these measures, take your prescription pain medication if prescribed.
Medications:
You may resume your home medications.
Bowel Medications:
Prescription pain medication can make you constipated. If you take this medication, also take colace 100 mg twice daily (this is over the counter). If this is not sufficient, you may take Miralax (polyethylene glycol) to help move your bowels.
Diet:
After your procedure, there are no dietary restrictions.
Driving restrictions:
No driving if you are taking prescription pain medication or if you think your normal reaction time and attentiveness has been slowed by your surgery.
Things to Look out for:
Worsening Abdominal pain, redness or drainage from incision
Call Doctor for:
Please call if you notice worsening redness or drainage from incision(s) lasting longer than 5 days after your surgery, any foul-smelling drainage from the incision, pain not controlled by pain medications, persistent nausea and vomiting, or for any
fevers greater than 101.3 F. The number for questions/concerns is [phone]
Follow-up:
A follow-up appointment will be scheduled with your surgeon in 3-4 weeks. Please call prior to your appointment if you have any questions or concerns. [phone]
Referrals:
Feli Gamboa MD [Family Provider] -
Prescriptions:
New
acetaminophen 325 mg tablet
650 mg PO Q6HPRN PRN (Reason: mild pain) Qty: 14 0RF
tramadol 50 mg tablet
25 mg PO Q6HPRN PRN (Reason: severe pain/breakthrough pain) Qty: 8 0RF
ibuprofen 600 mg tablet
600 mg PO Q6H PRN (Reason: pain) Qty: 14 0RF
Continued
ascorbic acid (vitamin C) [Vitamin C] 1,000 MG tablet
1,000 mg PO BID
vitamin B complex 1 EACH tablet
1 ea PO DAILY
albuterol sulfate 1 PUFF HFA aerosol inhaler
2 puff inhalation R Q6HPRN PRN (Reason: asthma)
cholecalciferol (vitamin D3) 10,000 UNIT capsule
10,000 unit PO DAILY
melatonin 10 MG tablet
10 mg PO HS
Beta Carotene
25,000 units PO DAILY
zinc sulfate 50 mg zinc (220 mg) Capsule
50 mg PO DAILY Qty: 0
omeprazole 20 MG capsule,delayed release(DR/EC)
20 mg PO DAILY
citalopram 20 MG tablet
20 mg PO DAILY
Pea Supplement
1 cap PO DAILY
aspirin 81 mg Tablet,Chewable
81 mg PO DAILY
vitamin K2 40 mcg Tablet
40 mcg PO DAILY
hiukjhkw-ssll-ufkbe-oreg-capry 100 mg-150 mg- 50 mg-150 mg Capsule
1 cap PO DAILY
nitroglycerin 0.4 mg tablet, sublingual
0.4 mg sublingual [id number] PRN (Reason: chest pain) Qty: 25 5RF
metoprolol succinate [Toprol XL] 25 mg tablet extended release 24 hr
12.5 mg PO DAILY Qty: 30 5RF
rosuvastatin 10 mg tablet
10 mg PO QPM Qty: 30 5RF
Discharge Orders:
Discharge Patient (As Directed); Ordered 06/19/24
Ordered By: Trenton De Oliveira
Discharge Date and Time
Discharge Date/Time: 06/19/24 13:10
Print Language: HUNGARIAN
== END 2024-06-19 13:10 | disposition home or self-care (01) | DRG 336 ==
LOC: 2 SOUTH 14:07
PROVIDERS: Emergency Medicine; Internal Medicine; Registered Nurse; ADMITTING PHYSICIAN Internal Medicine; ATTENDING PHYSICIAN Surgery; EMERGENCY PHYSICIAN Emergency Medicine; FAMILY PHYSICIAN Internal Medicine
PROC: 0DNU4ZZ Release Omentum, Percutaneous Endoscopic Approach (ICD-10-PCS; 2024-06-13)
PROC: 0DQV0ZZ Repair Mesentery, Open Approach (ICD-10-PCS; 2024-06-13)
PROC: 0DN80ZZ Release Small Intestine, Open Approach (ICD-10-PCS; 2024-06-13)
PROC: 0W9G3ZX Drainage of Peritoneal Cavity, Percutaneous Approach, Diagnostic (ICD-10-PCS; 2024-06-13)
PROC: 0D9670Z Drainage of Stomach with Drainage Device, Via Natural or Artificial Opening (ICD-10-PCS; 2024-06-14)
DX: K56.2 Volvulus (principal); D62 Acute posthemorrhagic anemia; R18.8 Other ascites; S36.893A Laceration of other intra-abdominal organs, initial encounter; K91.89 Other postprocedural complications and disorders of digestive system; I10 Essential (primary) hypertension; K21.9 Gastro-esophageal reflux disease without esophagitis; M54.9 Dorsalgia, unspecified; G47.33 Obstructive sleep apnea (adult) (pediatric); K46.9 Unspecified abdominal hernia without obstruction or gangrene; M19.90 Unspecified osteoarthritis, unspecified site; M79.7 Fibromyalgia; K66.0 Peritoneal adhesions (postprocedural) (postinfection); X58.XXXA Exposure to other specified factors, initial encounter; I25.10 Atherosclerotic heart disease of native coronary artery without angina pectoris; D72.829 Elevated white blood cell count, unspecified; K56.7 Ileus, unspecified; R41.3 Other amnesia; K21.00 Gastro-esophageal reflux disease with esophagitis, without bleeding; K76.0 Fatty (change of) liver, not elsewhere classified; F32.A Depression, unspecified; J45.909 Unspecified asthma, uncomplicated; E55.9 Vitamin D deficiency, unspecified; L71.9 Rosacea, unspecified; E78.5 Hyperlipidemia, unspecified; E66.09 Other obesity due to excess calories; Z68.36 Body mass index [BMI] 36.0-36.9, adult; Z85.42 Personal history of malignant neoplasm of other parts of uterus; Z90.710 Acquired absence of both cervix and uterus; Z90.722 Acquired absence of ovaries, bilateral; Z88.5 Allergy status to narcotic agent; Z79.82 Long term (current) use of aspirin; Z53.31 Laparoscopic surgical procedure converted to open procedure
CPT/HCPCS: 88305; 43752; 74018; 74177; 80048; 80053; 83605; 83690; 85014; 85018; 85025; 85027; 86850; 86900; 86901; 87015; 87070; 87205; 88112; 93005; 96361; 96374; 96375; 96376; 99285; C1776; Q9967

== ENCOUNTER → 2024-12-02 14:02 | Outpatient (REF) | payer MEDICARE, OTHER, SELFPAY | LOC: HWRAD 14:02 | PROVIDERS: ATTENDING PHYSICIAN Internal Medicine | DX: I70.90 Unspecified atherosclerosis (principal); R09.89 Other specified symptoms and signs involving the circulatory and respiratory systems; E78.5 Hyperlipidemia, unspecified; N28.1 Cyst of kidney, acquired | CPT/HCPCS: 76775; 93880 ==

== ENCOUNTER → 2024-12-08 14:51 | Outpatient (REF) | payer MEDICARE, OTHER, SELFPAY | LOC: RAD 14:51 | PROVIDERS: ATTENDING PHYSICIAN Internal Medicine | DX: R09.89 Other specified symptoms and signs involving the circulatory and respiratory systems (principal); E78.5 Hyperlipidemia, unspecified | CPT/HCPCS: 93922 ==

== ENCOUNTER → 2024-12-22 15:16 | Outpatient (REF) | payer MEDICARE, OTHER, SELFPAY | LOC: WDC 15:16 | PROVIDERS: ATTENDING PHYSICIAN Internal Medicine | DX: Z12.31 Encounter for screening mammogram for malignant neoplasm of breast (principal); Z12.39 Encounter for other screening for malignant neoplasm of breast | CPT/HCPCS: 77063; 77067 ==

== ENCOUNTER → 2025-01-26 16:31 | Outpatient (REF) | payer MEDICARE, OTHER, SELFPAY ==
[2025-01-26 17:18] LABS: ALT (SGPT) 16 U/L (0-35); AST (SGOT) 19 U/L (14-36); HDL Cholesterol 54 mg/dl; LDL Cholesterol, Calculated 68 mg/dl; Very Low Density Lipoprotein 19 mg/dl (0-30)
[2025-01-27 16:14] LABS: CRP, Ultra Sensitive 2.74 mg/L (0.30-5.00)
== END ==
LOC: REG 16:31
PROVIDERS: ATTENDING PHYSICIAN Internal Medicine
DX: E78.5 Hyperlipidemia, unspecified (principal); R79.82 Elevated C-reactive protein (CRP)
CPT/HCPCS: 36415; 80061; 84450; 84460; 86141